=== PATIENT | female | born 1945 | race Caucasian/White ===

== ENCOUNTER 2016-07-11 12:14 | Emergency (ER) | payer MEDICARE, MEDICAID ==
[~2016-07-11] VITALS: Ht 170.2 cm; Wt 129.6 kg
[~2016-07-11 12:14] MED LIST: ALEN70TA30; CALC1TAB81; ESOM40CA; FENO145T25; FERR325C; FURO40TA4; GABA300C16; IRBE1TAB; LORA10TA; METF1000; NEBI10TA2; PIOG30TA19; PRAM0.1224; SOLI5TAB5
[2016-07-11] MEDS ORDERED: CEFTRIAXONE 1 GM/50 ML (PMX) 50 ML IVPB ONE (12:30)
[2016-07-11 12:31] VITALS: Ht 170.2 cm; Wt 129.6 kg
--- NOTE | 2016-07-11 12:51 | RADRPT ---
PROCEDURE: XR Chest. CLINICAL INDICATION: Sepsis TECHNIQUE: Chest AP portable. COMPARISON: No comparison available. FINDINGS: The mediastinal structures are unremarkable. There is calcification of the thoracic aorta (consiste nt with atherosclerosis). There is mild cardiomegaly. The pulmonary vascularity is normal. There is mild bibasilar subsegmental atelectasis. No consolidation is identified. The pleural spaces are unremarkable. There are senescent changes of the axial skeleton. IMPRESSION: Calcification of the thoracic aorta (consistent with atherosclerosis) Mild cardiomegaly Mild bibasilar subsegmental atelectasis RPTAT: HGDB .Ramesh Madrid MD, MD Date Time Electronically viewed and signed by .Ramesh Madrid MD, on 07/11/2016 12:51 .B/
[2016-07-11 13:35] LABS: ADD SCAN DIFF NO; BASOPHILS % 0.4 % (0.0-2.0); EOSINOPHILS # 0.2 10^3/ul (0.0-0.5); EOSINOPHILS % 1.9 % (0.0-7.0); HEMATOCRIT 40.4 % (37.0-47.0); LYMPHOCYTES # 3.3 10^3/ul (0.8-2.9); LYMPHOCYTES % 33.6 % (15.0-51.0); MEAN CORPUSCULAR HEMOGLOBIN 30.3 pg (29.0-33.0); MEAN CORPUSCULAR HGB CONC 32.2 g/dl (32.0-37.0); MEAN CORPUSCULAR VOLUME 94.2 fl (82.0-101.0); MEAN PLATELET VOLUME 11.2 fl (7.4-10.4); MONOCYTE # 0.9 10^3/ul (0.3-0.9); MONOCYTES % 8.8 % (0.0-11.0); NEUTROPHIL # 5.3 10^3/ul (1.6-7.5); NEUTROPHILS % 54.5 % (39.0-77.0); PLATELET COUNT 293 10^3/UL (140-415); RED BLOOD COUNT 4.29 10^6/ul (4.20-5.40); RED CELL DISTRIBUTION WIDTH 12.7 % (11.5-14.5); WHITE BLOOD COUNT 9.8 10^3/ul (4.8-10.8)
[2016-07-11 13:51] LABS: PARTIAL THROMBOPLASTIN TIME 26.6 Sec (25.0-35.0); PROTIME 13.2 Sec (12.2-14.2)
[2016-07-11 13:52] LABS: CHLORIDE 100 mmol/L (97-110)
[2016-07-11 13:53] LABS: POTASSIUM 4.7 mmol/L (3.5-5.1); SODIUM 137 mmol/L (135-144)
[2016-07-11 13:55] LABS: ALANINE AMINOTRANSFERASE 30 IU/L (13-69); ALKALINE PHOSPHATASE 122 IU/L (42-121); ANION GAP 15 (8-16); ASPARTATE AMINO TRANSFERASE 38 IU/L (15-46); BILIRUBIN,INDIRECT 0.3 mg/dl (0-1.1); BILIRUBIN,TOTAL 0.3 mg/dl (0.2-1.3); BLOOD UREA NITROGEN 28 mg/dl (7-20); CARBON DIOXIDE 27 mmol/L (21-31); CREATININE 1.04 mg/dl (0.44-1.00)
[2016-07-11 13:56] LABS: CALCIUM 9.4 mg/dl (8.4-10.2); GLUCOSE 338 mg/dl (70-220)
--- NOTE | 2016-07-11 14:01 | ERA ---
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 The patient has an indwelling catheter that has been present for several years and was recently changed just prior to arrival. The patient awoke this morning and her daughter who is her caregiver noticed that there was blood present in the Ellington bag. The patient was complaining of a mild burning sensation when she attempts to urinate. The home health care nurse spoke with their urologist Dr. De Jesus, who instructed for the home health care nurse to change the Ellington catheter. This was able to be done without any difficulty however the urine continued to have hematuria with no blood clots. The patient also states she has had a productive cough for the past 2 days. She has had no fevers or shaking or chills. No antipyretics were taken prior to arrival. The patient denies any chest pain or pressure that radiates to the neck arm back or jaw. She has no shortness of breath at rest or exertion. The patient is bedbound secondary to her previous cerebrovascular accident. She was brought in by EMS and was accompanied with her daughter she is not currently on antibiotics at this time ROS All systems reviewed and are negative except as per history of present illness. Medications Home Meds Active Scripts Cephalexin* (Keflex*) 500 Mg Capsule, 500 MG PO QID for 10 Days, CAP Prov:SYDNEE FUNKA 07/11/16 Reported Medications Solifenacin* (Vesicare*) 5 Mg Tablet 01/04/10 Nebivolol Hcl* (Bystolic*) 10 Mg Tablet 01/04/10 Fenofibrate Nanocrystallized* (Tricor*) 145 Mg Tablet 01/04/10 Pramipexole* (Mirapex*) 0.125 Mg Tablet 01/04/10 Irbesartan/Hydrochlorothiazide (Avalide 300-25 Mg Tablet) 1 Tab Tablet 01/04/10 Esomeprazole Mag Trihydrate (Nexium) 40 Mg Capsule. 01/04/10 Ferrous Sulfate (Iron) 325 Mg Capsr 01/04/10 Gabapentin* (Gabapentin*) 300 Mg Capsule 01/04/10 Calcium Carbonate/Vitamin D3 (Os-Brad 500+D Tablet) 1 Tab Tablet 01/04/10 Furosemide* (Furosemide*) 40 Mg Tablet 01/04/10 Loratadine (Loratadine) 10 Mg Tablet 01/04/10 Pioglitazone Hcl* (Actos*) 30 Mg Tablet 01/04/10 Metformin Hcl* (Metformin Hcl*) 1,000 Mg Tablet 01/04/10 Alendronate Sodium* (Fosamax*) 70 Mg Tablet 01/04/10 Allergies Allergies: Coded Allergies: No Known Drug Allergies (Verified Allergy, Mild, 01/04/10) PMhx/Soc Hx Neurological Disorder: Yes (CVA) Hx Cardiac Disorders: Yes (HTN) Hx Miscellaneous Medical Probl: Yes (OBESITY) Hx Alcohol Use: No Hx Substance Use: No Hx Tobacco Use: No Physical Exam Vitals Vital Signs Date Time Temp Pulse Resp B/P Pulse Ox O2 Delivery O2 Flow Rate FiO2 07/11/16 14:44 72 18 117/43 94 Room Air 07/11/16 12:45 75 20 159/77 97 Room Air 07/11/16 12:31 98.9 77 20 189/78 97 Physical Exam Constitutional:Well-developed. Well-nourished. HEENT:Normocephalic. Atraumatic.Pupils were equal round reactive to light. Moist mucous membranes.No tonsillar exudates. Neck: No nuchal rigidity. No lymphadenopathy. No posterior cervical spine tenderness or step-offs. Respiratory: Not using accessory muscles of respiration.Lungs were clear to auscultation bilaterally. No rhonchi. No rales. No wheezing. Cardiovascular: Regular rate regular rhythm.No murmurs. No rubs were appreciated.S1, S2 normal. Distal pulses are palpable 2+ bilaterally. GI: Abdomen was obese so exam is limited due to body habitus. Nontender. Non Distended. No pulsatile abdominal masses or bruits. No rebound. No guarding. Bowel sounds were present and normal. Left-sided abdominal hernia nontender, reducible : Ellington catheter is in place with hematuria and no blood clots. Muscle skeletal: Right-sided hemiparesis. Full range of motion of the left upper and lower extremity. No asymmetrical calf tenderness or swelling Skin: No petechia, no purpura. No lesions on the palms or the soles of the feet. No maculopapular rash. NEURO: Patient was alert, awake, orientated x3.No facial droop. Patient is bedbound and therefore unable to ambulate. No facial droop. Result Diagram: 07/11/16 1300 07/11/16 1300 Results 24 hrs Laboratory Tests Test 07/11/16 13:00 07/11/16 13:20 07/11/16 14:20 White Blood Count 9.810^3/ul Red Blood Count 4.2910^6/ul Hemoglobin 13.0g/dl Hematocrit 40.4% Mean Corpuscular Volume 94.2fl Mean Corpuscular Hemoglobin 30.3pg Mean Corpuscular Hemoglobin Concent 32.2g/dl Red Cell Distribution Width 12.7% Platelet Count 54505^3/UL Mean Platelet Volume 11.2fl Neutrophils % 54.5% Lymphocytes % 33.6% Monocytes % 8.8% Eosinophils % 1.9% Basophils % 0.4% Nucleated Red Blood Cells % 0.0/100WBC Neutrophils # 5.310^3/ul Lymphocytes # 3.310^3/ul Monocytes # 0.910^3/ul Eosinophils # 0.210^3/ul Basophils # 0.010^3/ul Nucleated Red Blood Cells # 0.010^3/ul Prothrombin Time 13.2Sec Prothrombin Time Ratio 1.0 INR International Normalized Ratio 1.00 Activated Partial Thromboplast Time 26.6Sec Sodium Level 137mmol/L Potassium Level 4.7mmol/L Chloride Level 100mmol/L Carbon Dioxide Level 27mmol/L Anion Gap 15 Blood Urea Nitrogen 28mg/dl Creatinine 1.04mg/dl Glucose Level 338mg/dl Lactic Acid Level 1.8mmol/L 2.1mmol/L Calcium Level 9.4mg/dl Total Bilirubin 0.3mg/dl Direct Bilirubin 0.00mg/dl Indirect Bilirubin 0.3mg/dl Aspartate Amino Transf (AST/SGOT) 38IU/L Alanine Aminotransferase (ALT/SGPT) 30IU/L Alkaline Phosphatase 122IU/L Troponin I < 0.012ng/ml Total Protein 8.0g/dl Albumin 4.0g/dl Globulin 4.00g/dl Albumin/Globulin Ratio 1.00 Urine Color RED Urine Clarity BLOODY Urine pH 5.0 Urine Specific [place] 1.010 Urine Ketones NEGATIVE Urine Nitrite NEGATIVE Urine Bilirubin 1+ Urine Ictotest NEGATIVE Urine Urobilinogen 1.0 E.U./dL Urine Leukocyte Esterase 2+ Urine Microscopic RBC >200/HPF Urine Microscopic WBC 5-10/HPF Urine Bacteria FEW Urine Hemoglobin 3+ Urine Glucose NEGATIVE% Urine Total Protein 2+ Current Medications Medications (Trade) Dose Ordered Sig/Crystal Route PRN Reason Start Time Stop Time Status Last Admin Dose Admin Ceftriaxone Sodium 50 ml @ 100 mls/hr ONCE ONCE IVPB 07/11/16 12:30 07/11/16 12:59 DC 07/11/16 13:31 Sodium Chloride (NS) 1,000 ml @ 1,000 mls/hr Q1H STAT IV 07/11/16 14:19 07/11/16 15:18 DC 07/11/16 14:26 Fosfomycin Tromethamine (Monurol) 3 gm ONCE ONCE PO 07/11/16 14:30 07/11/16 14:31 DC 07/11/16 14:43 Insulin Human Lispro (Humalog) 10 unit ONCE STAT SC 07/11/16 14:30 07/11/16 14:32 DC 07/11/16 14:40 Procedures/MDM This patient presented to the emergency department with hematuria. The patient was placed in a telemetry monitor continuous pulse oximetry and IV access was established by nursing staff. The patient had no leukocytosis. She was afebrile. Urinalysis and urine culture was obtained from the patient's Ellington catheter that had just been replaced. Blood cultures had also been obtained upon arrival into the emergency department. I did administer 1 g of ceftriaxone for suspected urinary tract infection. I ordered a chest radiograph due to the patient's productive cough. The chest radiograph indicated there was no evidence of pneumonia pneumothorax or pleural effusion. The patient was in no respiratory distress. There is no physical exam findings to suggest aspiration pneumonia. The patient was hyperglycemic without ketosis. The patient received a liter bolus of 0.9 normal saline. The patient received subcutaneous insulin. I spoke with the patient's primary care physician Dr. Santamaria. Given that the patient had no evidence of sepsis, no leukocytosis and was afebrile I did clinically feel that the patient to be given a dose of IV Rocephin in the emergency department as well as an oral dose of [place] will be discharged home with oral antibiotics. I also spoke with the patient's urologist Dr. De Jesus. The patient had a urine culture that was sent prior to the antibiotics being given. The patient will follow up with her primary care physician Dr. Santamaria the next several days. Departure Diagnosis: Primary Impression: Hematuria due to cystitis Additional Impression: Hyperglycemia without ketosis Condition: CHINEDU Wang Jul 11, 2016 14:01
[2016-07-11 14:15] LABS: ADD UMIC YES; URINE BILIRUBIN (Dip) 1+ (NEGATIVE); URINE BLOOD (Dip) 3+ (NEGATIVE); URINE COLOR RED (YELLOW); URINE GLUCOSE (Dip) NEGATIVE (NEGATIVE); URINE KETONES (Dip) NEGATIVE (NEGATIVE); URINE LEUKOCYTE ESTERASE (Dip) 2+ (NEGATIVE); URINE NITRITE (Dip) NEGATIVE (NEGATIVE); URINE TOTAL PROTEIN (Dip) 2+ (NEGATIVE); URINE UROBILINOGEN (Dip) 1.0 E.U./dL (0.1-1.0)
[2016-07-11] MEDS ORDERED: SOD CHLORIDE 0.9% 1,000 ML IV STA (14:19)
[2016-07-11 14:25] LABS: TROPONIN-I < 0.012 ng/ml (0.00-0.12)
[2016-07-11 14:27] LABS: URINE RBCS >200 /HPF (0)
[2016-07-11 14:28] LABS: BACTERIA,URINE FEW; ICTOTEST NEGATIVE (NEGATIVE)
[2016-07-11] MEDS ORDERED: FOSFOMYCIN 3 GM PACKET PO ONE (14:30)
[2016-07-11] MEDS ORDERED: INSULIN LISPRO 100 UNIT/ML VIAL SC STA (14:30)
[2016-07-11] MEDS ORDERED: CEPH-443 PO (14:31)
[2016-07-11 14:44] VITALS: BP 117/43; PULSE 72; RESP 18
== END 2016-07-11 16:47 | disposition home or self-care (01) ==
LOC: E/R 12:14
DX: N30.91 Cystitis, unspecified with hematuria (principal); I10 Essential (primary) hypertension; E11.65 Type 2 diabetes mellitus with hyperglycemia; E66.9 Obesity, unspecified; Z68.41 Body mass index [BMI] 40.0-44.9, adult; Z79.84 Long term (current) use of oral hypoglycemic drugs
CPT/HCPCS: 71010; 80053; 81001; 83605; 84484; 85025; 85610; 85730; 87040; 87086; 93005; J0696; J1815; J7030; 36415; 81003; 96372; 96374

== ENCOUNTER 2016-07-15 21:57 | Emergency (ER) | payer MEDICARE, OTHER ==
[~2016-07-15] VITALS: Ht 170.2 cm; Wt 109.1 kg
[~2016-07-15 21:57] MED LIST changes: +CEPH-443 PO
[2016-07-15 22:29] VITALS: Ht 170.2 cm; Wt 109.1 kg
--- NOTE | 2016-07-15 22:33 | ERA ---
ER Documentation Chief Complaint Date/Time DATE: 07/15/16 TIME: 22:33 Chief Complaint She was called back because of resistant bacteria in the urine HPI The patient is a 70-year-old female, presenting to the ER because of resistant bacteria Kleb pneumonia carbapenermas in the urine, only sensitive to Amikacin. She was seen in the ER on July 11, 2016, diagnosed with acute cystitis, treated with Rocephin IV and discharged with Keflex. Her doctor Dr. Santamaria called her today to go to the ER for IV antibiotic. She denies fever, chills, neck pain, chest pain, abdominal pain, diarrhea, constipation. She has intermittent cough for the last 2 weeks. She has a indwelling Ellington catheter. She does not smoke, drink Past medical history: History of CVA, hypertension, dyslipidemia, diabetes mellitus, osteoporosis Past surgical history: One ROS All systems reviewed and are negative except as per history of present illness. Medications Home Meds Active Scripts Cephalexin* (Keflex*) 500 Mg Capsule, 500 MG PO QID for 10 Days, CAP Prov:CHINEDU FUNK 07/11/16 Reported Medications Solifenacin* (Vesicare*) 5 Mg Tablet 01/04/10 Nebivolol Hcl* (Bystolic*) 10 Mg Tablet 01/04/10 Fenofibrate Nanocrystallized* (Tricor*) 145 Mg Tablet 01/04/10 Pramipexole* (Mirapex*) 0.125 Mg Tablet 01/04/10 Irbesartan/Hydrochlorothiazide (Avalide 300-25 Mg Tablet) 1 Tab Tablet 01/04/10 Esomeprazole Mag Trihydrate (Nexium) 40 Mg Capsule. 01/04/10 Ferrous Sulfate (Iron) 325 Mg Capsr 01/04/10 Gabapentin* (Gabapentin*) 300 Mg Capsule 01/04/10 Calcium Carbonate/Vitamin D3 (Os-Brad 500+D Tablet) 1 Tab Tablet 01/04/10 Furosemide* (Furosemide*) 40 Mg Tablet 01/04/10 Loratadine (Loratadine) 10 Mg Tablet 01/04/10 Pioglitazone Hcl* (Actos*) 30 Mg Tablet 01/04/10 Metformin Hcl* (Metformin Hcl*) 1,000 Mg Tablet 01/04/10 Alendronate Sodium* (Fosamax*) 70 Mg Tablet 01/04/10 Allergies Allergies: Coded Allergies: No Known Drug Allergies (Verified Allergy, Mild, 01/04/10) PMhx/Soc Hx Neurological Disorder: Yes (CVA) Hx Cardiac Disorders: Yes (HTN) Hx Miscellaneous Medical Probl: Yes (OBESITY) Hx Alcohol Use: No Hx Substance Use: No Hx Tobacco Use: No Physical Exam Vitals Vital Signs Date Time Temp Pulse Resp B/P Pulse Ox O2 Delivery O2 Flow Rate FiO2 07/16/16 03:00 65 16 113/53 100 Nasal Cannula 2.0 07/16/16 00:28 Nasal Cannula 2 07/15/16 22:29 98.5 68 20 146/61 93 Physical Exam Const: No acute distress. Head: Atraumatic. Eyes: Normal Conjunctiva. ENT: Normal External Ears, Nose and Mouth. Neck: Full range of motion. No meningismus. Resp: Clear to auscultation bilaterally. Cardio: Regular rate and rhythm, no murmurs. Abd: Soft, obese, normal bowel sounds, non tender. Skin: No petechiae or rashes. Back: No midline or flank tenderness. Ext: No cyanosis, or edema. Neur: Awake and alert. No focal deficit Psych: Normal Mood and Affect. Result Diagram: 07/15/16 2300 07/15/162299 Results 24 hrs Laboratory Tests Test 07/15/16 22:40 07/15/16 22:44 07/15/16 23:00 07/16/16 00:31 Urine Color LT. YELLOW Urine Clarity CLEAR Urine pH 6.0 Urine Specific [place] <=1.005 Urine Ketones NEGATIVE Urine Nitrite NEGATIVE Urine Bilirubin NEGATIVE Urine Urobilinogen 0.2 E.U./dL Urine Leukocyte Esterase TRACE Urine Microscopic RBC 0-2/HPF Urine Microscopic WBC 0-2/HPF Urine Squamous Epithelial Cells RARE Urine Hemoglobin TRACE Urine Glucose NEGATIVE% Urine Total Protein 1+ Bedside Urine pH (LAB) 6.0 Bedside Urine Protein (LAB) 2+ Bedside Urine Glucose (UA) Negative Bedside Urine Ketones (LAB) Negative Bedside Urine Blood Trace-lysed Bedside Urine Nitrite (LAB) Negative Bedside Urine Leukocyte Esterase (L Trace White Blood Count 10.610^3/ul Red Blood Count 4.3410^6/ul Hemoglobin 12.9g/dl Hematocrit 40.7% Mean Corpuscular Volume 93.8fl Mean Corpuscular Hemoglobin 29.7pg Mean Corpuscular Hemoglobin Concent 31.7g/dl Red Cell Distribution Width 13.0% Platelet Count 04979^3/UL Mean Platelet Volume 11.0fl Neutrophils % 49.0% Lymphocytes % 39.3% Monocytes % 8.0% Eosinophils % 2.6% Basophils % 0.6% Nucleated Red Blood Cells % 0.0/100WBC Neutrophils # 5.210^3/ul Lymphocytes # 4.210^3/ul Monocytes # 0.910^3/ul Eosinophils # 0.310^3/ul Basophils # 0.110^3/ul Nucleated Red Blood Cells # 0.010^3/ul Prothrombin Time 13.0Sec Prothrombin Time Ratio 1.0 INR International Normalized Ratio 0.98 Activated Partial Thromboplast Time 25.5Sec Sodium Level 136mmol/L Potassium Level 4.3mmol/L Chloride Level 102mmol/L Carbon Dioxide Level 27mmol/L Anion Gap 11 Blood Urea Nitrogen 18mg/dl Creatinine 0.91mg/dl Glucose Level 213mg/dl Lactic Acid Level 1.6mmol/L 1.4mmol/L Calcium Level 9.6mg/dl Total Bilirubin 0.2mg/dl Direct Bilirubin 0.00mg/dl Indirect Bilirubin 0.2mg/dl Aspartate Amino Transf (AST/SGOT) 54IU/L Alanine Aminotransferase (ALT/SGPT) 40IU/L Alkaline Phosphatase 105IU/L Troponin I < 0.010ng/ml Total Protein 7.8g/dl Albumin 3.9g/dl Globulin 3.90g/dl Albumin/Globulin Ratio 1.00 Test 07/16/16 00:56 07/16/16 03:33 Bedside Urine pH (LAB) 6.0 Bedside Urine Protein (LAB) 2+ Bedside Urine Glucose (UA) Negative Bedside Urine Ketones (LAB) Negative Bedside Urine Blood Trace-lysed Bedside Urine Nitrite (LAB) Negative Bedside Urine Leukocyte Esterase (L Trace Lactic Acid Level 1.6mmol/L Current Medications Medications (Trade) Dose Ordered Sig/Crystal Route PRN Reason Start Time Stop Time Status Last Admin Dose Admin Amikacin Sulfate/ Dextrose (Amikacin/D5W) 102 ml @ 102 mls/hr ONCE ONCE IVPB 07/16/16 01:30 07/16/16 02:29 DC 07/16/16 02:19 Procedures/MDM [facility] [address] [address] Radiology Main Line: [phone] DIAGNOSTIC IMAGING REPORT Patient: SEEMA AGUILAR : 1945 Age: 70 Sex: F MR #: [id number] DOS: 07/15/16 2237 Ordering MD: JENNIFER WOODS MD Location: E/R Room/Bed: PROCEDURE: XR Chest. CLINICAL INDICATION: Possible sepsis TECHNIQUE: AP Portable chest. COMPARISON: 07/11/2016 FINDINGS: There is moderate cardiomegaly. The lungs are clear. The osseous structures are unremarkable. IMPRESSION: No acute findings. RPTAT: HIKT .Brain Paiz MD, MD Date Time Electronically viewed and signed by .Brain Paiz MD, MD on 07/15/2016 23:21 .T/ CC: JENNIFER WOODS MD EKG: Read by emergency physician Rate/Rhythm: Normal Sinus Rhythm 67 beats/min QRS, ST, T-waves: No ST elevation, no T inversion, LAD, LVH Impression: Abnormal EKG MEDICAL MAKING DECISION: The patient is a 70-year-old female, presenting to the ER because of persistent bacteria in the urine. She was treated with Amikacin 500 mg IV. I suspect it might be contaminated urine. The differential diagnoses considered include but are not limited to cholelithiasis, cholecystitis, cystitis, pancreatitis, hepatitis, gastritis, peptic ulcer disease, gastric ulcer, appendicitis, diverticulitis, cholangitis, choledocholithiasis, partial small bowel obstruction. The Ellington catheter was replaced, a clean urine was submitted Departure Diagnosis: Primary Impression: UTI (urinary tract infection) Condition: Stable Comments I discussed the patient with her physician Dr Panda, who was made aware of the lab, the treatment, the patient condition. He is going to transfer the patient to halfway facility for IV antibiotic JENNIFER WOODS MD Jul 15, 2016 22:33
[2016-07-15 22:45] LABS: URINE BLOOD (Dip) POC Trace-lysed (NEGATIVE)
[2016-07-15 23:04] LABS: ADD UMIC YES; URINE BILIRUBIN (Dip) NEGATIVE (NEGATIVE); URINE BLOOD (Dip) TRACE (NEGATIVE); URINE COLOR LT. YELLOW (YELLOW); URINE GLUCOSE (Dip) NEGATIVE (NEGATIVE); URINE KETONES (Dip) NEGATIVE (NEGATIVE); URINE LEUKOCYTE ESTERASE (Dip) TRACE (NEGATIVE); URINE NITRITE (Dip) NEGATIVE (NEGATIVE); URINE TOTAL PROTEIN (Dip) 1+ (NEGATIVE); URINE UROBILINOGEN (Dip) 0.2 E.U./dL (0.1-1.0)
[2016-07-15 23:20] LABS: URINE RBCS 0-2 /HPF (0)
[2016-07-15 23:21] LABS: SQUAMOUS EPITHELIAL CELL,UR RARE
--- NOTE | 2016-07-15 23:21 | RADRPT ---
PROCEDURE: XR Chest. CLINICAL INDICATION: Possible sepsis TECHNIQUE: AP Portable chest. COMPARISON: 07/11/2016 FINDINGS: There is moderate cardiomegaly. The lungs are clear. The osseous structures are unremarkable. IMPRESSION: No acute findings. RPTAT: HIKT .Brain Paiz MD, Date Time Electronically viewed and signed by .Brain Paiz MD, on 07/15/2016 23:21 .T/
[2016-07-15 23:24] LABS: ADD SCAN DIFF NO
[2016-07-15 23:27] LABS: BASOPHIL # 0.1 10^3/ul (0.0-0.1); BASOPHILS % 0.6 % (0.0-2.0); EOSINOPHILS # 0.3 10^3/ul (0.0-0.5); EOSINOPHILS % 2.6 % (0.0-7.0); HEMATOCRIT 40.7 % (37.0-47.0); HEMOGLOBIN 12.9 g/dl (12.0-16.0); LYMPHOCYTES # 4.2 10^3/ul (0.8-2.9); LYMPHOCYTES % 39.3 % (15.0-51.0); MEAN CORPUSCULAR HEMOGLOBIN 29.7 pg (29.0-33.0); MEAN CORPUSCULAR HGB CONC 31.7 g/dl (32.0-37.0); MEAN CORPUSCULAR VOLUME 93.8 fl (82.0-101.0); MONOCYTE # 0.9 10^3/ul (0.3-0.9); NEUTROPHIL # 5.2 10^3/ul (1.6-7.5); PLATELET COUNT 275 10^3/UL (140-415); RED BLOOD COUNT 4.34 10^6/ul (4.20-5.40); WHITE BLOOD COUNT 10.6 10^3/ul (4.8-10.8)
[2016-07-15 23:35] LABS: ALBUMIN 3.9 g/dl (3.3-4.9)
[2016-07-15 23:36] LABS: CHLORIDE 102 mmol/L (97-110); INR 0.98; POTASSIUM 4.3 mmol/L (3.5-5.1); SODIUM 136 mmol/L (135-144)
[2016-07-15 23:37] LABS: PARTIAL THROMBOPLASTIN TIME 25.5 Sec (25.0-35.0)
[2016-07-15 23:38] LABS: ANION GAP 11 (8-16); ASPARTATE AMINO TRANSFERASE 54 IU/L (15-46); BILIRUBIN,INDIRECT 0.2 mg/dl (0-1.1); BILIRUBIN,TOTAL 0.2 mg/dl (0.2-1.3); CARBON DIOXIDE 27 mmol/L (21-31); CREATININE 0.91 mg/dl (0.44-1.00)
[2016-07-15 23:39] LABS: ALANINE AMINOTRANSFERASE 40 IU/L (13-69); ALKALINE PHOSPHATASE 105 IU/L (42-121); BLOOD UREA NITROGEN 18 mg/dl (7-20); CALCIUM 9.6 mg/dl (8.4-10.2); GLUCOSE 213 mg/dl (70-220); TOTAL PROTEIN 7.8 g/dl (6.1-8.1)
[2016-07-16] LABS: TROPONIN-I < 0.010 ng/ml (0.00-0.12)
[2016-07-16 00:57] LABS: URINE BLOOD (Dip) POC Trace-lysed (NEGATIVE)
[2016-07-16] MEDS ORDERED: AMIKACIN 500 MG in DEXTROSE 5% 100 ML IVPB ONE (01:30)
[2016-07-16 07:25] VITALS: RESP 22
[2016-07-16] MEDS ORDERED: IMIPENEM/CILASTATIN 1,000 MG in SOD CHLORIDE 0.9% 250 ML IVPB ONE (09:30)
[2016-07-16] MEDS ORDERED: AMIKACIN 500 MG in SOD CHLORIDE 0.9% 100 ML IVPB SCH (10:00)
[2016-07-16 16:11] VITALS: BP 121/41; PULSE 67
== END 2016-07-16 17:40 | disposition home or self-care (01) ==
LOC: E/R 21:57
DX: N39.0 Urinary tract infection, site not specified (principal); I10 Essential (primary) hypertension; I50.9 Heart failure, unspecified; E11.9 Type 2 diabetes mellitus without complications; E66.9 Obesity, unspecified; Z79.84 Long term (current) use of oral hypoglycemic drugs; Z68.37 Body mass index [BMI] 37.0-37.9, adult
CPT/HCPCS: 51702; 71010; 80053; 81001; 81003; 83605; 84484; 85025; 85610; 85730; 87040; 87086; 93005; 96374; 96376; 99285; J0278